=== PATIENT | female | born 1955 | race Caucasian/White ===

== ENCOUNTER → 2019-09-23 09:25 | Outpatient (CLI) | payer MEDICARE, OTHER, SELFPAY ==
--- NOTE | 2019-09-23 09:34 | US_ITS ---
HISTORY: RECURRENT UTI EXAMINATION: US Kidney(s) complete (eg, kidneys and bladder) TECHNIQUE: Romano scale and color doppler images were obtained of the kidneys. COMPARISON: None FINDINGS: RIGHT KIDNEY: Measures 9.5 x 3.6 x 5 cm in length. No focal parenchymal mass, hydronephrosis, nephrolithiasis, or perinephric fluid collection is noted. LEFT KIDNEY: Measures 9.7 x 4.3 x 5.6 cm in length. No nephrolithiasis. No hydronephrosis. Within the left kidney there is an anechoic structure measuring 3.2 x 3.6 x 3.1 cm, consistent with a benign cyst URINARY BLADDER: Is distended to 100 cc. Ureteric jets were not perceived US/Kidney and Bladder IMPRESSION: No hydronephrosis or nephrolithiasis perceived. Benign cyst on the left kidney. at 0603 Reported and signed by: Louis Kim MD Electronically Signed: Louis Kim MD at 6:02 EST Tel , Service support ,
== END ==
PROVIDERS: Referring Provider Urology; Visit Provider Urology
DX: N39.0 Urinary tract infection, site not specified (principal)
CPT/HCPCS: 76770

== ENCOUNTER 2022-09-16 06:33 | Day surgery (SDC) | payer MEDICARE, OTHER, SELFPAY ==
[2022-09-16] MEDS: Lactated Ringers 1,000 ML 15 ML IV (07:07)
[2022-09-16 07:08] VITALS: BP 112/69; PULSE 104; RESP 18; TEMP 36.7; O2SAT 96; BMI 25.8
--- NOTE | 2022-09-16 07:41 | HP.PCM_ITS ---
History and Physical Date of Admission: 09/16/22 MJ CABAN, is a 66 F who presents to the office today today to establish with GI for hx of colon polyps. Her prior upper and lower endoscopies were done by GI Dr Park in [place]; most recent colonoscopy was 2020, one tubular adenoma; was told prep was poor--she had done 2 days of clears, dulcolax 2x5mg plus miralax prep. Hx of polyps prior years too. Hx Batres's esophagus diagnosed in 2010, repeat EGD since then negative for Batres's. She had surgery for hiatal hernia in 02/[address] Regina Castillo at [facility] (she doesn't know specifics of the surgery). She has no heartburn or acid reflux, not on a med for GERD. No nausea, vomiting, dysphagia. No abdominal pain. No diarrhea, constipation, melena, hematochezia. ROS Const Constitutional: No fatigue ENT ENT: No difficulty swallowing Gastro GI: No abdominal pain, belching, bloating, change in bowel habits, change in stool character, coffee ground emesis, constipation, cramping, diarrhea, heartburn, difficulty swallowing, feeling full early, excessive flatus, incontinent of stools, Vomiting blood/hematemesis, Blood in stool, loose stools, Black,tarry stools, nausea/dyspepsia, pain with swallowing, vomiting or other Musc Musculoskeletal: No joint pain Skin Skin: No yellowing of the eye or itchy eyes Psych Psychiatric: No anxiety and No depression Endo Endocrine: No fatigue Aller/Imm Allergy/Immunologic: No itchy eyes Joel/Lymp Hematologic/Lymphatic: No easy bleeding or easy bruising Exam Const General: cooperative and comfortable Orientation: alert, awake and oriented x3 HENMT Head: normal to inspection Eyes General: appearance normal, both eyes and all related structures Resp Effort & Inspection: normal respiratory effort GI Inspection: normal to inspection Palpation: soft, no masses and nontender Skin General: no jaundice Neuro Gait: normal gait Psych Mood: euthymic mood Quality Reporting Tobacco Screening ([facility]) Smoking Status: Never smoker Assessment and Plan Assessment and Plan (1) Colon polyps: ?Status:?Acute ?Plan: 66 yr old female with hx of colon tubular adenomas, due for repeat colonoscopy, hx poor prep, she will do 2 days of clears, mag citrate (she has a half bottle), dulcolax 4x5mg, miralax, can do enema if needed. f/u 2 wks later to review results. will also get egd to f/u hx batres's. she is uncertain what surgery she had for hiatal hernia.? (2) Batres's esophagus: ?Status:?Acute ?Plan: as above I have examined the patient and the H&P has been reviewed. There are no clinical changes since date of exam.
--- NOTE | 2022-09-16 07:45 | EGD_PTH ---
PATIENT: JM CABAN LOC: [facility] U#:[id number] AGE/SX: 66/F ROOM: RE09/16/[address]: Dr. 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 Duodenum biopsy, B ? Distal esophagus biopsy, C ? Hepatic flexure biopsy, D ? Ischemic colitis biopsy, E ? Rectal biopsy MICROSCOPIC DIAGNOSIS A. 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 B. Distal esophagus, biopsy: Gastroesophageal junctional mucosa with chronic inflammation. Focal changes of reflux. No evidence of goblet cell metaplasia. See comment. C. Colonic polyp at hepatic flexure, biopsy: Tubular adenoma. D. Ischemic colitis, biopsy: Consistent with ischemic colitis. Fibrinopurulent material. E. Rectum, biopsy: No pathologic change. AM:jonathan 09/17/2022 COMMENT B. Alcian blue/PAS stain with matched control supports the above diagnosis. MICROSCOPIC DESCRIPTION Slides are reviewed. GROSS DESCRIPTION A - Received in fixative is one container labeled with the patient's name and designated duodenum biopsy. The specimen consists of multiple irregular fragments of light pickens soft tissue that in aggregate measure 1 x 0.3 x 0.1 cm. The specimen is totally submitted in one cassette. B - Received in fixative is one container labeled with the patient's name and designated distal esophageal biopsy. The specimen consists of multiple irregular fragments of light pickens soft tissue that in aggregate measure 0.6 x 0.4 x 0.1 cm. The specimen is totally submitted in one cassette. C - Received in fixative is one container labeled with the patient's name and designated hepatic flexure polyp. The specimen consists of two irregular fragments of light pickens soft tissue that in aggregate measure 0.5 x 0.2 x 0.1 cm. The specimen is totally submitted in one cassette. D - Received in fixative is one container labeled with the patient's name and designated ischemic colitis biopsy. The specimen consists of multiple irregular fragments of light pickens soft tissue that in aggregate measure 0.6 x 0.4 x 0.1 cm. The specimen is totally submitted in one cassette. E - Received in fixative is one container labeled with the patient's name and designated rectal biopsy. The specimen consists of one irregular fragment of light pickens soft tissue that measures 0.4 x 0.3 x 0.1 cm. The specimen is totally submitted in one cassette. / SJ:rg 09/16/2022 TC:2 CPT: 39636 x5, 43709
--- NOTE | 2022-09-16 08:16 | OP.EGD_ITS ---
Patient Name: Ladan Garza Procedure Date: 09/16/2022 7:35 AM Date of : 1955 Age: 66 Procedure: Upper GI endoscopy Indications: Heartburn Providers: Juventino Ramos DO Referring MD: Juventino Ramos DO Medicines: Monitored Anesthesia Care Patient Profile: This is a 66 year old female. Refer to note in patient chart for documentation of history and physical. Patient has symptoms. Complications: No immediate complications. Procedure: Pre-Anesthesia Assessment: - Prior to the procedure, a History and Physical was performed, and patient medications and allergies were reviewed. The risks and benefits of the procedure and the sedation options and risks were discussed with the patient. All questions were answered and informed consent was obtained. Patient identification and proposed procedure were verified by the physician in the pre-procedure area. Mental Status Examination: alert and oriented. Airway Examination: normal oropharyngeal airway and neck mobility. Respiratory Examination: clear to auscultation. CV Examination: normal. Prophylactic Antibiotics: The patient does not require prophylactic antibiotics. Prior Anticoagulants: The patient has taken no previous anticoagulant or antiplatelet agents. After reviewing the risks and benefits, the patient was deemed in satisfactory condition to undergo the procedure. The anesthesia plan was to use monitored anesthesia care (MAC). Immediately prior to administration of medications, the patient was re-assessed for adequacy to receive sedatives. The heart rate, respiratory rate, oxygen saturations, blood pressure, adequacy of pulmonary ventilation, and response to care were monitored throughout the procedure. The physical status of the patient was re-assessed after the procedure. After obtaining informed consent, the endoscope was passed under direct vision. Throughout the procedure, the patient's blood pressure, pulse, and oxygen saturations were monitored continuously. The Colonoscope was introduced through the mouth, and advanced to the second part of duodenum. The upper GI endoscopy was accomplished without difficulty. The patient tolerated the procedure well. Scope In: 7:45:04 AM Scope Out: 7:51:19 AM Total Procedure Duration Time 0 hours 6 minutes 15 seconds Findings: LA Grade A (one or more mucosal breaks less than 5 mm, not extending between tops of 2 mucosal folds) esophagitis with no bleeding was found 33 to 36 cm from the incisors. Biopsies were taken with a cold forceps for histology. Verification of patient identification for the specimen was done. Estimated blood loss was minimal. A large hiatal hernia was present. No other significant abnormalities were identified in a careful examination of the stomach. The cardia and gastric fundus were normal on retroflexion. Patchy moderately erythematous mucosa without active bleeding and with no stigmata of bleeding was found in the first portion of the duodenum. Biopsies were taken with a cold forceps for histology. Verification of patient identification for the specimen was done. Estimated blood loss was minimal. Impression: - LA Grade A reflux esophagitis. Biopsied. - Large hiatal hernia. - Erythematous duodenopathy. Biopsied. Recommendation: - Discharge patient to home. - Resume previous diet. - Continue present medications. - Await pathology results. - Repeat upper endoscopy in 1 year for surveillance. Procedure Code(s): --- Professional --- 82684, Esophagogastroduodenoscopy, flexible, transoral; with biopsy, single or multiple CPT copyright 2017 [employer]. All rights reserved. The codes documented in this report are preliminary and upon career technical education instructor review may be revised to meet current compliance requirements. Juventino Ramos DO 09/16/2022 8:16:30 AM This report has been signed electronically. Number of Addenda: 0 Note Initiated On: 09/16/2022 7:35 AM
[2022-09-16 08:17] VITALS: BP 104/64; BP 112/69; PULSE 78; RESP 18; TEMP 36.4; O2SAT 97
--- NOTE | 2022-09-16 08:17 | OP.CCLET_ITS ---
09/16/2022 Cassidy Re : Upper GI endoscopy procedure for Ladan Benjamin This procedure was performed on Friday, September 16, 2022. My impressions and recommendations are as follows: Impressions : - LA Grade A reflux esophagitis. Biopsied. - Large hiatal hernia. - Erythematous duodenopathy. Biopsied. Recommendations : - Discharge patient to home. - Resume previous diet. - Continue present medications. - Await pathology results. - Repeat upper endoscopy in 1 year for surveillance. My findings are described in the full procedure note, which is enclosed. If I can be of further assistance, please feel free to contact me at . Sincerely, Juventino Ramos, 09/16/2022 8:16:30 AM This report has been signed electronically.
[2022-09-16 08:20] VITALS: BP 112/69; BP 115/73; PULSE 77; RESP 16; O2SAT 98
--- NOTE | 2022-09-16 08:21 | OP.CCLET_ITS ---
09/16/2022 Lady Benjamin Re : Colonoscopy procedure for Ladan Benjamin This procedure was performed on Friday, September 16, 2022. My impressions and recommendations are as follows: Impressions : - Localized severe inflammation was found in the sigmoid colon, in the descending colon and at the splenic flexure secondary to colitis. Biopsied. - One 5 mm polyp at the hepatic flexure, removed with a cold snare. Resected and retrieved. - Stool in the cecum and at the appendiceal orifice. - Stricture in the distal transverse colon. Recommendations : - Discharge patient to home. - Resume previous diet. - Continue present medications. - Await pathology results. - Repeat colonoscopy in 5 years for surveillance. My findings are described in the full procedure note, which is enclosed. If I can be of further assistance, please feel free to contact me at . Sincerely, Juventino Ramos, 09/16/2022 8:21:08 AM This report has been signed electronically.
--- NOTE | 2022-09-16 08:21 | OP.COLON_ITS ---
Patient Name: Ladan Garza Procedure Date: 09/16/2022 7:51 AM Date of : 1955 Age: 66 Procedure: Colonoscopy Indications: Follow-up for history of adenomatous polyps in the colon Providers: Juventino Ramos DO Referring MD: Juventino Ramos DO Medicines: Monitored Anesthesia Care Patient Profile: This is a 66 year old female. Refer to note in patient chart for documentation of history and physical. Patient has symptoms. Last Colonoscopy: 3 years ago. Complications: No immediate complications. Procedure: Pre-Anesthesia Assessment: - Prior to the procedure, a History and Physical was performed, and patient medications and allergies were reviewed. The risks and benefits of the procedure and the sedation options and risks were discussed with the patient. All questions were answered and informed consent was obtained. Patient identification and proposed procedure were verified by the physician in the pre-procedure area. Mental Status Examination: alert and oriented. Airway Examination: normal oropharyngeal airway and neck mobility. Respiratory Examination: clear to auscultation. CV Examination: normal. Prophylactic Antibiotics: The patient does not require prophylactic antibiotics. Prior Anticoagulants: The patient has taken no previous anticoagulant or antiplatelet agents. After reviewing the risks and benefits, the patient was deemed in satisfactory condition to undergo the procedure. The anesthesia plan was to use monitored anesthesia care (MAC). Immediately prior to administration of medications, the patient was re-assessed for adequacy to receive sedatives. The heart rate, respiratory rate, oxygen saturations, blood pressure, adequacy of pulmonary ventilation, and response to care were monitored throughout the procedure. The physical status of the patient was re-assessed after the procedure. After I obtained informed consent, the scope was passed under direct vision. Throughout the procedure, the patient's blood pressure, pulse, and oxygen saturations were monitored continuously. The Colonoscope was introduced through the anus and advanced to the terminal ileum. The colonoscopy was performed without difficulty. The patient tolerated the procedure well. The quality of the bowel preparation was adequate. Scope In: 7:53:57 AM Scope Withdrawal Time 0 hours 8 minutes 43 seconds Scope Out: 8:11:20 AM Total Procedure Duration Time 0 hours 17 minutes 23 seconds Findings: The perianal and digital rectal examinations were normal. Localized severe inflammation characterized by congestion (edema), friability, granularity, loss of vascularity and aphthous ulcerations was found in the sigmoid colon, in the descending colon and at the splenic flexure. Biopsies were taken with a cold forceps for histology. Verification of patient identification for the specimen was done. Estimated blood loss was minimal. A 5 mm polyp was found in the hepatic flexure. The polyp was sessile. The polyp was removed with a cold snare. Resection and retrieval were complete. Verification of patient identification for the specimen was done. Estimated blood loss was minimal. A small amount of stool was found in the cecum and appendiceal orifice, precluding visualization. A benign-appearing, intrinsic mild stenosis measuring 3 cm (in length) was found in the distal transverse colon and was traversed. Impression: - Localized severe inflammation was found in the sigmoid colon, in the descending colon and at the splenic flexure secondary to colitis. Biopsied. - One 5 mm polyp at the hepatic flexure, removed with a cold snare. Resected and retrieved. - Stool in the cecum and at the appendiceal orifice. - Stricture in the distal transverse colon. Recommendation: - Discharge patient to home. - Resume previous diet. - Continue present medications. - Await pathology results. - Repeat colonoscopy in 5 years for surveillance. Procedure Code(s): --- Professional --- 86790, Colonoscopy, flexible; with removal of tumor(s), polyp(s), or other lesion(s) by snare technique 87826, 59, Colonoscopy, flexible; with biopsy, single or multiple CPT copyright 2017 [employer]. All rights reserved. The codes documented in this report are preliminary and upon catalogue maker review may be revised to meet current compliance requirements. Juventino Ramos DO 09/16/2022 8:21:08 AM This report has been signed electronically. Number of Addenda: 0 Note Initiated On: 09/16/2022 7:51 AM
[2022-09-16 08:25] VITALS: BP 112/69; BP 115/75; PULSE 85; RESP 16; O2SAT 100
[2022-09-16 08:29] VITALS: BP 110/68; BP 112/69; PULSE 79; RESP 16; TEMP 36.7; O2SAT 96
[2022-09-16 08:50] VITALS: BP 112/69
== END 2022-09-16 08:57 | disposition home or self-care (01) ==
LOC: EN 06:34 → AC 06:35
PROVIDERS: Referring Provider Internal Medicine Gastroenterology; Visit Provider Internal Medicine Gastroenterology
PROC: 0DJD8ZZ Inspection of Lower Intestinal Tract, Via Natural or Artificial Opening Endoscopic (ICD-10-PCS; CPT 45378; principal; 2022-09-16 07:40)
DX: K52.9 Noninfective gastroenteritis and colitis, unspecified (principal); K56.699 Other intestinal obstruction unspecified as to partial versus complete obstruction; K22.70 Barrett's esophagus without dysplasia; K21.00 Gastro-esophageal reflux disease with esophagitis, without bleeding; K63.5 Polyp of colon; K44.9 Diaphragmatic hernia without obstruction or gangrene
CPT/HCPCS: 45385; 45380; 43239; 88305; 88313; J7120; J2405

== ENCOUNTER → 2022-10-07 | Outpatient (CLI) | payer MEDICARE, OTHER, SELFPAY ==
--- NOTE | 2022-10-07 18:47 | CT_ITS ---
EXAM: CT ANGIOGRAPHY ABDOMEN AND PELVIS WITH INTRAVENOUS CONTRAST CLINICAL INDICATION: ischemic colitis per colonoscopy and biopsy TECHNIQUE: Helically acquired angiography images were obtained of the abdomen and pelvis with intravenous contrast. This CT exam was performed using one or more of the following dose reduction techniques: automated exposure control, adjustment of the mA and/or kV according to patient size, and/or use of iterative reconstruction technique. This report was created using [employer] report generation technology. MIP reconstructed images were created and reviewed. CONTRAST: IV 100mL [id number]-370 RADIATION DOSE: CTDIvol = 26.03 mGy, DLP = 851.21 mGy-cm COMPARISON: None. FINDINGS: VASCULATURE: AORTA: No acute findings. Normal caliber abdominal aorta. No dissection. CELIAC TRUNK AND MESENTERIC ARTERIES: No acute findings. No occlusion or significant stenosis. No dissection. Mild calcifications at the origins of the celiac axis and SMA. RENAL ARTERIES: No acute findings. Slight calcification of the origin of the left renal artery. No occlusion or significant stenosis. No dissection. ILIAC ARTERIES: No acute findings. No occlusion or significant stenosis. No dissection. LOWER THORAX: Moderate hiatal hernia with postoperative changes of the herniated portion of the stomach and surgical changes around the esophageal hiatus. Lung bases are clear. No cardiomegaly. No significant pericardial effusion. ABDOMEN: LIVER: Unremarkable. Homogeneous. No focal mass. GALLBLADDER AND BILE DUCTS: Unremarkable. No calcified gallstones. No gallbladder distention or wall edema. No intra- or extrahepatic biliary ductal dilation. PANCREAS: Unremarkable. No focal cystic or solid mass. SPLEEN: Unremarkable. Normal size without focal cystic or solid mass. ADRENALS: Unremarkable. No nodules. KIDNEYS AND URETERS: Exophytic simple-appearing 4.6 cm left renal cyst, tiny simple-appearing 5 mm cortical right kidney cyst. Normal renal size and position. No hydronephrosis. STOMACH AND BOWEL: Mild fluid, gas and mixed density material in the stomach. Mildly prominent fluid in the small bowel. There is a long segment of fluid-filled small bowel in the lower abdomen with mild callosal enhancement, it is distended to 2.5 cm. Adjacent mesenteric vessels appear patent. Moderate-large amount of stool in the proximal half of the colon, mild stool in the distal colon. No stomach or bowel distention. No focal inflammatory change. PELVIS: APPENDIX: Small appendix is seen on coronal images, the cecum is high and anterior in position. BLADDER: Unremarkable. REPRODUCTIVE: Hysterectomy. ABDOMEN and PELVIS: INTRAPERITONEAL SPACE: Unremarkable. No ascites or other fluid collection. No free air. BONES/JOINTS: There is marked decreased body height at L1 with old compression fracture and retropulsion of the posterior-superior margin roughly 8 mm, narrowing the AP diameter of the canal to 8 mm. Marked disc space narrowing and vacuum disc at L5-S1. Mild disc space narrowing and spondylosis at other lumbar levels. No acute bone lesions. No suspicious lytic or blastic abnormality. SOFT TISSUES: Small fat-containing umbilical hernia.. LYMPH NODES: Unremarkable. No enlarged lymph nodes. CT/CTA Abd/Pelvis W/WO Contrast IMPRESSION: No acute findings in the arteries of the abdomen and pelvis. Mildly prominent fluid- filled small bowel with mucosal enhancement in the lower abdomen, long segment, possibly focal enteritis or small bowel ischemia. No significant associated mesenteric changes. Prominent stool in most of the proximal half of the colon. Mild gas and stool in the distal colon. No evidence of significant colitis by CT. Hiatal hernia. Small fat-containing umbilical hernias. Hysterectomy. Chronic lumbar spine compression fracture deformity. Electronically Signed: Joaquina Hedrick MD at 9:50 EST ,
[2022-10-07 19:15] LABS: CREATININE FINGERSTICK 1.6 mg/dL (0.55-1.02)
== END | disposition home or self-care (01) ==
LOC: CT 18:45
PROVIDERS: Referring Provider Nurse Practitioner Adult Health; Visit Provider Nurse Practitioner Adult Health
DX: K55.9 Vascular disorder of intestine, unspecified (principal)
CPT/HCPCS: 74174; Q9967